=== PATIENT | male | born 1965 | race Caucasian/White ===

== ENCOUNTER 2017-06-21 09:30 | Emergency (ER) | payer OTHER ==
[2017-06-21 09:40] VITALS: O2SAT 97
--- NOTE | 2017-06-21 10:07 | ERPHSYRPT ---
- History of Present Illness Time Seen by Provider: 06/21/17 09:56 Source: patient Exam Limitations: no limitations Patient Subjective Stated Complaint: was at work and a piece of metal flew off and hit him to nose, no loc, has bleeding and laceration to nose Triage Nursing Assessment: pt laceration to right side of noes, with small amt of bleeding,pressure applies Physician History: 51-year-old white male arrives with complaints of being struck in the nose with a fragment of a pain which was struck by a sledgehammer just prior to arrival. Patient states he was working when somebody struck her pain with sledgehammer just flew off and struck him in the right anterior nose he has a laceration to the right anterior nose. He has a palpable foreign body in his right naris. He has no loss of consciousness. Past medical history patient denies. Past surgical history cholecystectomy. Last tetanus one year ago. Social history patient chews tobacco. Timing/Duration: today Severity: moderate Modifying Factors: Improves With: nothing Associated Symptoms: other (laceration to nose with foreign body right naris), No nausea, No vomiting, No abdominal pain, No shortness of breath, No heartburn , No diaphoresis, No cough, No chills, No chest pain, No fever, No headaches, No loss of appetite, No malaise, No rash, No syncope, No seizure, No weakness Allergies/Adverse Reactions: No Known Drug Allergies Allergy (Unverified 06/21/17 09:40) Home Medications: Naproxen Sodium [Aleve] 220 mg DAILY 06/21/17 [History] [place]-3/Dha/Epa/Fish Oil [Fish Oil 500 mg Softgel] 1 ea DAILY 06/21/17 [History] Hx Tetanus, Diphtheria Vaccination/Date Given: Yes (2015) Hx Influenza Vaccination/Date Given: Yes Hx Pneumococcal Vaccination/Date Given: No Immunizations Up to Date: Yes - Review of Systems Constitutional: No Fever, No Chills Eyes: No Symptoms Ears, Nose, & Throat: Other (laceration to nose with foreign body right naris) Respiratory: No Cough, No Dyspnea Cardiac: No Chest Pain, No Edema, No Syncope Abdominal/Gastrointestinal: No Abdominal Pain, No Nausea, No Vomiting, No Diarrhea Genitourinary Symptoms: No Dysuria Musculoskeletal: No Back Pain, No Neck Pain Skin: No Rash Neurological: No Dizziness, No Focal Weakness, No Sensory Changes Psychological: No Symptoms Endocrine: No Symptoms All Other Systems: Reviewed and Negative - Past Medical History Pertinent Past Medical History: No - Past Surgical History Past Surgical History: Yes Gastrointestinal: Cholecystectomy - Social History Smoking Status: Never smoker Exposure to second hand smoke: No Drug Use: none Patient Lives Alone: No - Nursing Vital Signs Nursing Vital Signs: Initial Vital Signs Temperature 97.8 F 06/21/17 09:36 Pulse Rate 78 06/21/17 09:36 Respiratory Rate 18 06/21/17 09:36 Blood Pressure 160/40 06/21/17 09:36 O2 Sat by Pulse Oximetry 97 06/21/17 09:36 Pain Scale Pain Intensity [] 3 Pain Intensity 6 - Physical Exam General Appearance: mild distress, other (well-developed well-nourished white male laceration to right anterior naris) Eye Exam: PERRL/EOMI, eyes nml inspection, other (fundi unremarkable) Ears, Nose, Throat Exam: other (1.5 cm right anterior nose foreign-body palpable in the right naris) Neck Exam: normal inspection, non-tender, supple, full range of motion Respiratory Exam: normal breath sounds, lungs clear, No respiratory distress Cardiovascular Exam: regular rate/rhythm, normal heart sounds, normal peripheral pulses Gastrointestinal/Abdomen Exam: soft, normal bowel sounds, No tenderness, No mass Back Exam: normal inspection, normal range of motion, No CVA tenderness, No vertebral tenderness Extremity Exam: normal inspection (clean,), normal range of motion, pelvis stable Neurologic Exam: alert, oriented x 3, cooperative, normal mood/affect, nml cerebellar function, nml station & gait, sensation nml, No motor deficits Skin Exam: normal color, warm, dry, other (1.5 cm laceration to the right anterior nose), No rash Lymphatic Exam: No adenopathy SpO2 Interpretation: normal (97%) SpO2: 97 Oxygen Delivery: Room Air - Course Nursing assessment & vital signs reviewed: Yes - Radiology Exams Other X-ray Interpretation: Discussed w/ radiologist (x-ray nasal bone colon 28 x 6 mm foreign body in the nose soft tissues without acute fracture. Paranasal sinuses are clear) Ordered Tests: Active Orders 24 hr Category Date Time Status NASAL BONES (MIN 3 VIEWS) Stat Exams 06/21/17 Completed Medication Summary Discontinued Medications Generic Name Dose Route Start Last Admin Trade Name Lori PRN Reason Stop Dose Admin Lidocaine HCl Confirm 06/21/17 10:20 Xylocaine 1% Hcl 20 Ml Mdv Administered 06/21/17 10:21 Dose 5 ml .ROUTE .STK-MED ONE Phenylephrine HCl Confirm 06/21/17 10:19 Neosynephrine 0.5% Nasal [place]/Drops Administered 06/21/17 10:20 Dose 15 ml .ROUTE .STK-MED ONE - Progress Progress: improved Progress Note: 06/21/17 10:56 This is a 51-year-old white male with complaints of a foreign body which shot off of a metal pin when it was struck with a sledgehammer just prior to arrival this structure patient in the nose and the right anterior nose he has a palpable foreign body in his right naris. He also has a 1.5 cm laceration to the right anterior nose. Patient on x-ray shows a 28 x 6 mm foreign body in the right no soft tissue without acute fractures paranasal sinuses are clear. Removal of foreign body in the nose with repair of 1.5 cm laceration nose. Area is sterilely cleansed by nurse,. Anesthetized with 1% lidocaine. Hemostat is used to remove the foreign body through the open end of the right naris inferiorly. Areas were re-cleansed by the patient's nurse. And patient's laceration is sutured using 5, 5. 0 Ethilon sutures. Bacitracin is applied by the patient's nurse. Patient's tetanus is already up to date. - Departure Time of Disposition: 11:02 Departure Disposition: Home Clinical Impression: removal soft tissue foreign body nose Laceration of nose Qualifiers: Encounter type: initial encounter Qualified Code(s): S01.21XA - Laceration without foreign body of nose, initial encounter Condition: Fair Critical Care Time: No Referrals: FELICIA BECK MD [Primary Care Provider] - Additional Instructions: Return home. Keep area clean and dry. Bacitracin to area until healed. Keflex 500 mg orally 3 times a day for 7 days. Follow-up with your company physician. Sutures out in 5 days. Return for acute distress severe symptoms problems or signs of infection. Tylenol every 4 hours as needed for pain Prescriptions: Cephalexin Mh 500 mg [Keflex 500 mg] 500 mg PO TID #35 capsule
[2017-06-21] MEDS ORDERED: NEOSYNEPHRINE 0.5% NASAL SPRAY/DROPS ONE (10:19)
[2017-06-21] MEDS ORDERED: XYLOCAINE 1% HCL 20 ML MDV ONE (10:20)
--- NOTE | 2017-06-21 10:27 | XRAY ---
Indication: Foreign body. Comparison: None 3 views of the nasal bone demonstrates 28 x 6 mm foreign body in the right nose soft tissues without acute fracture. Paranasal sinuses are clear.
[2017-06-21] MEDS ORDERED: BACIGUENT PACKET ONE (10:55)
[2017-06-21] MEDS ORDERED: BACIGUENT PACKET TP ONE (11:07)
[2017-06-21 11:33] VITALS: BP 143/99; PULSE 54
== END 2017-06-21 11:34 | disposition home or self-care (01) ==
LOC: ED 09:30
PROC: 09QK0ZZ Repair Nasal Mucosa and Soft Tissue, Open Approach (ICD-10-PCS; principal; 2017-06-21)
DX: S01.21XA Laceration without foreign body of nose, initial encounter (principal); T17.1XXA Foreign body in nostril, initial encounter; W20.8XXA Other cause of strike by thrown, projected or falling object, initial encounter
CPT/HCPCS: 12011; 70160; 99283; A9270-GY